=== PATIENT | female | born 1970 | race Caucasian/White ===

== ENCOUNTER 2022-01-28 11:24 | Observation (INO) ==
[2022-01-28] MEDS ORDERED: DIAZEPAM 5 MG TABLET PO STA (12:34)
[2022-01-28 13:41] LABS: Basophils # 0.1 10*3/uL (0.0-0.2); Basophils % 0.6 % (0.0-0.8); Eosinophils # 0.1 10*3/uL (0.0-0.87); Eosinophils % 0.9 % (0.00-10.9); Hematocrit 40.3 VOL% (35.7-47.0); Hemoglobin 13.1 GM/DL (12.0-16.0); Immature Granulocytes % 0.6 %; Immature Granulocytes Absolute 0.05 #; Lymphocytes % 25.1 % (21.3-54.2); Mean Corpuscular HGB Conc 32.5 GM/DL (32-36); Mean Corpuscular Volume 88.4 FL (87-102); Mean Platelet Volume 9.5 FL (9.6-12.0); Monocytes # 0.7 10*3/uL (0.11-0.8); Monocytes % 8.9 % (1.7-12.7); Neutrophils % 63.9 % (38.7-73.9); Platelet Count 361 T/CUMM (130-400); Red Blood Count 4.56 MC/CUMM (3.8-5.5); Red Cell Distribution Width 13.4 % (9.3-17.3); White Blood Count 8.1 T/CUMM (4-12)
[2022-01-28 14:00] LABS: Alanine Aminotransferase 46 U/L (13-56); Albumin 3.7 G/DL (3.4-5.0); Alkaline Phosphatase 107 U/L (45-117); Aspartate Amino Transferase 30 U/L (0-37); Bilirubin,Total < 0.39 MG/DL (0.20-1.00); Blood Urea Nitrogen 32 MG/DL (7-18); Calcium 9.3 MG/DL (8.5-10.1); Carbon Dioxide 24 MMOL/L (21-32); Chloride 102 MMOL/L (98-107); Estimated Glom Filtration Rate 47 ML/MIN; Glucose 113 MG/DL (74-106); Potassium 4.1 MMOL/L (3.5-5.1); Sodium 136 MMOL/L (136-145); Total Protein 8.8 G/DL (6.4-8.2)
[2022-01-28] MEDS ORDERED: MAGNESIUM HYDROXIDE SUSP 30 ML UDCUP PO PRN (17:48)
[2022-01-28] MEDS: LACTATED RINGERS 1,000 ML IV SCH (18:41)
[2022-01-28 19:34] LABS: Albumin 3.6 G/DL (3.4-5.0); Bilirubin,Total 0.4 MG/DL (0.20-1.00); Calcium 9.7 MG/DL (8.5-10.1); Potassium 4.1 MMOL/L (3.5-5.1); Total Protein 8.4 G/DL (6.4-8.2)
[2022-01-28] MEDS: HYDROmorphone 1 MG/1 ML SYRINGE IV PRN (23:06)
[2022-01-28] MEDS: ONDANSETRON 4 MG/2 ML VIAL IV PRN (23:06)
[2022-01-29 00:29] LABS: Bacteria,Urine Occasional /HPF (Few); Mucus,Urine Occasional /LPF (Occasional); RBC,Urine 2 /HPF (0-4); Squamous Epithelial Cell,Urine Occasional /HPF (0-10)
[2022-01-29 00:30] LABS: Bilirubin,Urine Negative (Negative); Blood, Urine Negative (Negative); Glucose,Urine (UA) Negative (Negative); Ketones,Urine Negative (Negative); Nitrite,Urine Negative (Negative); Protein,Urine Negative (Negative); Urine Appearance Clear (Clear); Urine Color Yellow (Yellow); Urine Specific Gravity 1.025 (1.001-1.035); Urine Urobilinogen 0.2 eU/dL (<2.0); Urine pH 5.5 (4.5-8.0)
[2022-01-29 00:34] LABS: Barbiturates Screen,Urine Negative (Negative); Benzodiazepines Screen,Urine Positive (Negative); Cannabinoid Screen,Urine Negative (Negative); Opiate Screen,Urine Negative (Negative); Phencyclidine Screen,Urine Negative (Negative)
[2022-01-29] MEDS: LACTATED RINGERS 1,000 ML IV SCH ×2 (01:30→15:37)
[2022-01-29 04:06] LABS: Basophils # 0.1 10*3/uL (0.0-0.2); Basophils % 0.6 % (0.0-0.8); Eosinophils # 0.2 10*3/uL (0.0-0.87); Eosinophils % 2.9 % (0.00-10.9); Hematocrit 34.2 VOL% (35.7-47.0); Hemoglobin 11.2 GM/DL (12.0-16.0); Immature Granulocytes % 0.5 %; Immature Granulocytes Absolute 0.04 #; Lymphocytes # 3.5 10*3/uL (1.4-4.0); Lymphocytes % 42.3 % (21.3-54.2); Mean Corpuscular HGB Conc 32.7 GM/DL (32-36); Mean Corpuscular Volume 89.5 FL (87-102); Mean Platelet Volume 9.7 FL (9.6-12.0); Monocytes % 11.7 % (1.7-12.7); Platelet Count 269 T/CUMM (130-400); Red Blood Count 3.82 MC/CUMM (3.8-5.5); Red Cell Distribution Width 13.4 % (9.3-17.3); White Blood Count 8.3 T/CUMM (4-12)
[2022-01-29] MEDS: HYDROmorphone 1 MG/1 ML SYRINGE IV PRN (04:20)
[2022-01-29] MEDS: ONDANSETRON 4 MG/2 ML VIAL IV PRN (04:20)
[2022-01-29 04:29] LABS: Calcium 8.9 MG/DL (8.5-10.1); Osmolality,Calculated 277.8 MOS/KG (273-304); Potassium 3.7 MMOL/L (3.5-5.1)
[2022-01-29] MEDS ORDERED: propofoL 200 MG/20 ML VIAL IV ONE (06:33)
[2022-01-29] MEDS ORDERED: MIDAZOLAM 2 MG/2 ML VIAL ONE (06:33)
[2022-01-29] MEDS ORDERED: LIDOCAINE 2% 5 ML VIAL ONE (06:33)
[2022-01-29] MEDS ORDERED: fentaNYL 100 MCG/2 ML VIAL ONE (06:34)
[2022-01-29] MEDS ORDERED: ROPIVACAINE 0.5% 30 ML VIAL ONE (06:37)
[2022-01-29] MEDS ORDERED: DEXAMETHASONE 4 MG/1 ML VIAL ONE ×2 (06:37→07:26)
[2022-01-29] MEDS ORDERED: LIDOCAINE 1% 5 ML VIAL ONE (06:37)
[2022-01-29] MEDS ORDERED: GENTAMICIN IV ONE (07:00)
[2022-01-29] MEDS ORDERED: SODIUM CHLORIDE 0.9% IV ONE (07:00)
[2022-01-29] MEDS ORDERED: ceFAZolin 2,000 MG/50 ML DUPLEX IV ONE (07:00)
[2022-01-29] MEDS ORDERED: ePHEDrine 50 MG/ML VIAL ONE (07:24)
[2022-01-29] MEDS ORDERED: ONDANSETRON 4 MG/2 ML VIAL ONE (07:26)
[2022-01-29] MEDS ORDERED: PHENYLEPHRINE 1 MG/10 ML SYRINGE IV ONE ×2 (07:28→07:51)
[2022-01-29] MEDS ORDERED: SEVOFLURANE 1 UNIT/15 MINUTE INH ONE (07:28)
[2022-01-29] MEDS ORDERED: LACTATED RINGERS 1,000 ML IV ONE (07:47)
[2022-01-29] MEDS ORDERED: BACITRACIN OINT 0.9 GM PACK TOP ONE (07:47)
[2022-01-29] MEDS ORDERED: KETOROLAC 30 MG/1 ML VIAL IV PRN (08:29)
[2022-01-29] MEDS ORDERED: MAGNESIUM HYDROXIDE SUSP 30 ML UDCUP PO PRN (08:29)
[2022-01-29] MEDS ORDERED: diphenhydrAMINE CAP 25 MG CAPSULE PO PRN (08:29)
[2022-01-29] MEDS ORDERED: HYDROmorphone 1 MG/1 ML SYRINGE IV PRN (08:33)
[2022-01-29] MEDS ORDERED: ONDANSETRON 4 MG/2 ML VIAL IV PRN (08:33)
[2022-01-29] MEDS ORDERED: PROMETHAZINE INJ 25 MG in SODIUM CHLORIDE 0.9% 50 ML IV PRN (08:33)
[2022-01-29] MEDS ORDERED: MEPERIDINE 25 MG/1 ML VIAL IV PRN (08:33)
[2022-01-29] MEDS ORDERED: diphenhydrAMINE 50 MG/1 ML VIAL IV PRN (08:33)
[2022-01-29] MEDS: ceFAZolin 2,000 MG/50 ML DUPLEX IV SCH ×2 (14:00→21:48)
[2022-01-29] MEDS: PANTOPRAZOLE 40 MG TABLET PO SCH (16:14)
[2022-01-30] MEDS: HYDROmorphone 1 MG/1 ML SYRINGE IV PRN (03:25)
[2022-01-30] MEDS: ONDANSETRON 4 MG/2 ML VIAL IV PRN (03:25)
[2022-01-30] MEDS ORDERED: FONDAPARINUX 2.5 MG/0.5 ML SYRINGE SUBCUT SCH (05:00)
[2022-01-30 05:23] LABS: Basophils % 0.2 % (0.0-0.8); Eosinophils % 0.3 % (0.00-10.9); Hematocrit 31.7 VOL% (35.7-47.0); Immature Granulocytes % 0.3 %; Immature Granulocytes Absolute 0.03 #; Lymphocytes # 3.3 10*3/uL (1.4-4.0); Lymphocytes % 35.5 % (21.3-54.2); Mean Corpuscular HGB Conc 31.5 GM/DL (32-36); Mean Corpuscular Volume 91.1 FL (87-102); Mean Platelet Volume 9.7 FL (9.6-12.0); Monocytes # 1.2 10*3/uL (0.11-0.8); Monocytes % 12.2 % (1.7-12.7); Neutrophils % 51.5 % (38.7-73.9); Platelet Count 275 T/CUMM (130-400); Red Blood Count 3.48 MC/CUMM (3.8-5.5); Red Cell Distribution Width 13.4 % (9.3-17.3); White Blood Count 9.4 T/CUMM (4-12)
[2022-01-30] MEDS: PANTOPRAZOLE 40 MG TABLET PO SCH (08:19)
[2022-01-30 11:56] VITALS: BP 113/57
== END 2022-01-30 13:42 | disposition home or self-care (01) ==
LOC: N.ED 11:24 → N.EDINP 11:24 → N.3E 17:42
PROVIDERS: ADMIT Orthopaedic Surgery; ATTEND Orthopaedic Surgery